=== PATIENT | male | born 1960 | race African-American/Black ===

== ENCOUNTER 2018-01-05 12:50 | Observation (INO) | payer OTHER ==
[~2018-01-05] VITALS: Ht 180.3 cm; Wt 83.0 kg
[~2018-01-05 12:50] MED LIST: CASO50TA2 PO; OXYC1TAB36 PO
[2018-01-05 13:09] VITALS: BP 138/75; TEMP 97; O2SAT 100
[2018-01-05] MEDS ORDERED: SODIUM CHLOR 0.9% 1000 ML INJ 1,000 ML IV SCH (13:27)
[2018-01-05] MEDS ORDERED: MORPHINE SULFATE 4 MG/ML INJ IV PUSH ONE ×2 (13:30→13:45)
[2018-01-05] MEDS ORDERED: ONDANSETRON HCL 4 MG/2 ML VIAL IVP ONE (13:30)
--- NOTE | 2018-01-05 13:37 | PD ---
HPI Chief Complaint: General Weakness Time Seen by Provider: 13:23 Travel History International Travel<30 days: No Contact w/Intl Traveler<30days: No History of Present Illness HPI 57yo M with PMH of stage IV prostate adenocarcinoma s/p prostatectomy 2014 with bony mets presents to the ED with c/o nausea and vomiting today. Also with lower abdominal pain since yesterday. Denies any fever, chest pain, sob, focal weakness or numbness. +Generalized weakness. Pt has been noncompliant with his treatment and follow up because he said he cant afford it. Last oncology note was from 03/[address] Chu. He said he has not gone back in 4 months. +Dysuria. PFSH Past Medical History Cancer: No Cardiovascular Problems: No Diabetes: No Diminished Hearing: No Endocrine: No Genitourinary: Yes (BPH) Hepatitis: No Hiatal Hernia: No Immune Disorder: No Musculoskeletal: No Neurologic: No Psychiatric: No Reproductive: No Respiratory: No Immunizations Current: Yes Thyroid Disease: No Past Surgical History Joint Replacement: No Pacemaker: No Other Surgery: Yes (LEFT WRIST GANGLION REMOVAL) Social History Alcohol Use: No Tobacco Use: Yes (ppd) Substance Use: No Allergies-Medications (Allergen,Severity, Reaction): Coded Allergies: No Known Allergies (Unverified Allergy, Unknown, 01/05/18) Reported Meds & Prescriptions Reported Meds & Active Scripts Active Oxycodone-Acetaminophen 10-325 mg Tab 1 Tab PO Q6H PRN Reported Casodex (Bicalutamide) 50 Mg Tab 50 Mg PO DAILY Hazardous agent; use appropriate precautions for handling & disposal. Review of Systems Except as stated in HPI: all other systems reviewed are Neg Physical Exam Narrative GENERAL: 57yo M in moderate distress. SKIN: Focused skin assessment warm/dry. HEAD: Atraumatic. Normocephalic. EYES: Pupils equal and round. No scleral icterus. No injection or drainage. ENT: No nasal bleeding or discharge. Mucous membranes dry. NECK: Trachea midline. No JVD. CARDIOVASCULAR: Regular rate and rhythm. No murmur appreciated. RESPIRATORY: No accessory muscle use. Clear to auscultation. Breath sounds equal bilaterally. GASTROINTESTINAL: Abdomen soft, Suprapubic ttp. MUSCULOSKELETAL: No obvious deformities. No clubbing. No cyanosis. No edema. NEUROLOGICAL: Awake and alert. No obvious cranial nerve deficits. Motor grossly within normal limits. Normal speech. PSYCHIATRIC: Appropriate mood and affect; insight and judgment normal. Data Data Last Documented VS Vital Signs Date Time Temp Pulse Resp B/P (MAP) Pulse Ox O2 Delivery O2 Flow Rate FiO2 01/05/18 14:13 97.6 01/05/18 13:09 50 20 138/75 (96) 100 Orders Orders Complete Blood Count With Diff (01/05/18 13:27) Comprehensive Metabolic Panel (01/05/18 13:27) Lipase (01/05/18 13:27) Prothrombin Time / Inr (Pt) (01/05/18 13:27) Act Partial Throm Time (Ptt) (01/05/18 13:27) Urinalysis - C+S If Indicated (01/05/18 13:27) Ct Abd/Pel W Iv Contrast(Rout) (01/05/18 13:27) Morphine Inj (Morphine Inj) (01/05/18 13:30) Ondansetron Inj (Zofran Inj) (01/05/18 13:30) Sodium Chlor 0.9% 1000 Ml Inj (Ns 1000 M (01/05/18 13:27) Electrocardiogram (01/05/18 12:57) Morphine Inj (Morphine Inj) (01/05/18 13:45) Iohexol 350 Inj (Omnipaque 350 Inj) (01/05/18 15:31) Metoclopramide Inj (Reglan Inj) (01/05/18 15:45) Ondansetron Inj (Zofran Inj) (01/05/18 17:00) Admit Order (Ed Use Only) (01/05/18 17:04) Labs Laboratory Tests Test 01/05/18 13:38 01/05/18 16:30 White Blood Count 5.7 TH/MM3 Red Blood Count 4.92 MIL/MM3 Hemoglobin 13.4 GM/DL Hematocrit 39.7 % Mean Corpuscular Volume 80.8 FL Mean Corpuscular Hemoglobin 27.2 PG Mean Corpuscular Hemoglobin Concent 33.7 % Red Cell Distribution Width 15.0 % Platelet Count 270 TH/MM3 Mean Platelet Volume 8.4 FL Neutrophils (%) (Auto) 73.8 % Lymphocytes (%) (Auto) 20.1 % Monocytes (%) (Auto) 4.9 % Eosinophils (%) (Auto) 0.6 % Basophils (%) (Auto) 0.6 % Neutrophils # (Auto) 4.2 TH/MM3 Lymphocytes # (Auto) 1.1 TH/MM3 Monocytes # (Auto) 0.3 TH/MM3 Eosinophils # (Auto) 0.0 TH/MM3 Basophils # (Auto) 0.0 TH/MM3 CBC Comment DIFF FINAL Differential Comment Blood Urea Nitrogen 19 MG/DL Creatinine 0.99 MG/DL Random Glucose 168 MG/DL Total Protein 6.7 GM/DL Albumin 3.8 GM/DL Calcium Level 8.7 MG/DL Alkaline Phosphatase 41 U/L Aspartate Amino Transf (AST/SGOT) 16 U/L Alanine Aminotransferase (ALT/SGPT) 20 U/L Total Bilirubin 0.5 MG/DL Sodium Level 140 MEQ/L Potassium Level 3.8 MEQ/L Chloride Level 108 MEQ/L Carbon Dioxide Level 23.4 MEQ/L Anion Gap 9 MEQ/L Estimat Glomerular Filtration Rate 95 ML/MIN Lipase 379 U/L Urine Color YELLOW Urine Turbidity CLEAR Urine pH 5.5 Urine Specific [place] 1.026 Urine Protein TRACE mg/dL Urine Glucose (UA) NEG mg/dL Urine Ketones 10 mg/dL Urine Occult Blood NEG Urine Nitrite NEG Urine Bilirubin NEG Urine Urobilinogen LESS THAN 2.0 MG/DL Urine Leukocyte Esterase NEG Urine RBC 2 /hpf Urine WBC 1 /hpf Urine Squamous Epithelial Cells <1 /hpf Urine Mucus FEW /lpf Urine Sperm FEW Microscopic Urinalysis Comment CULT NOT INDICATED MDM Medical Decision Making Medical Screen Exam Complete: Yes Emergency Medical Condition: Yes Interpretation(s) EKG: Sinus bradycardia at 48bpm. Normal axis. Biphasic T waves V4-V6. Differential Diagnosis Malignancy vs. electrolyte abnormality vs. dehydration Narrative Course 57yo M with stage IV prostate adenocarcinoma presents to the ED with nausea, vomiting and abdominal pain. Pt has been noncompliant with following up with oncologist Dr. Chu because he said he cant afford the treatment. Labs reviewed , no leukocytosis. H/H normal. CMP unremarkable. Lipase normal. UA showed WBC 1. Culture not indicated. CT a/p showed left inguinal and retroperitoneal node. Also bony sclerosis involving pelvis and lower thoracic spine. These findings are new compare to 01/2015. No acute intra-abdominal abnormality. Pt was given zofran and then reglan and then zofran again and is still nauseous. Pt appears dehydrated and given NS IVF. Discussed with Dr. Chu who has not seen him in almost a year and said he agrees with supportive care and then he can follow up with him in the clinic. Pt agrees to that plan. Said he will be compliant now. Diagnosis Primary Impression: Intractable nausea and vomiting Qualified Codes: R11.2 - Nausea with vomiting, unspecified Admitting Information Admitting Physician Requests: Observation Scripts Walker with Front Wheels (Walker with Front Wheels) 1 Mis Mis EA .XX DIRECTED, #1 0 Refills Prov: Tom Mandel 01/06/18 Greer Calix DO Jan 05, 2018 13:37
[2018-01-05 13:56] LABS: AUTOMATED NEUTROPHIL # 4.2 TH/MM3 (1.8-7.7); BASOPHIL % 0.6 % (0.0-2.0); EOSINOPHIL % 0.6 % (0.0-4.0); HEMATOCRIT 39.7 % (39.0-51.0); HEMOGLOBIN 13.4 GM/DL (13.0-17.0); LYMPH % 20.1 % (9.0-44.0); LYMPHOCYTE # 1.1 TH/MM3 (1.0-4.8); MEAN CELL VOLUME 80.8 FL (80.0-100.0); MEAN CORPUSCULAR HEMOGLOBIN 27.2 PG (27.0-34.0); MEAN CORPUSCULAR HGB CONC 33.7 % (32.0-36.0); MEAN PLATELET VOLUME 8.4 FL (7.0-11.0); MONO % 4.9 % (0.0-8.0); MONOCYTE # 0.3 TH/MM3 (0-0.9); NEUT % 73.8 % (16.0-70.0); PLATELET COUNT 270 TH/MM3 (150-450); RED BLOOD COUNT 4.92 MIL/MM3 (4.50-5.90); WHITE BLOOD COUNT 5.7 TH/MM3 (4.0-11.0)
[2018-01-05 14:13] VITALS: TEMP 97.6
[2018-01-05 14:13] LABS: ALBUMIN 3.8 GM/DL (3.4-5.0); AST (GOT) 16 U/L (15-37); BICARBONATE 23.4 MEQ/L (21.0-32.0); BLOOD UREA NITROGEN 19 MG/DL (7-18); CALCIUM 8.7 MG/DL (8.5-10.1); CHLORIDE 108 MEQ/L (98-107); CREATININE 0.99 MG/DL (0.60-1.30); GLOMERULAR FILTRATION RATE 95 ML/MIN (>89); GLUCOSE,RANDOM 168 MG/DL (74-106); SODIUM (NA) 140 MEQ/L (136-145)
[2018-01-05 14:15] LABS: ALT (GPT) 20 U/L (12-78)
[2018-01-05 14:18] LABS: ALKALINE PHOSPHATASE 41 U/L (45-117); TOTAL BILIRUBIN ADULT 0.5 MG/DL (0.2-1.0); TOTAL PROTEIN 6.7 GM/DL (6.4-8.2)
[2018-01-05] MEDS ORDERED: IOHEXOL 350 MG/ML 10 ML VIAL (for RAD DIAG) IVCONTRAST ONE (15:31)
[2018-01-05] MEDS ORDERED: METOCLOPRAMIDE INJ 10 MG in SODIUM CHLORIDE 0.9% INJ 50 ML IV ONE (15:45)
--- NOTE | 2018-01-05 15:53 | RADRPT ---
EXAM DATE/TIME: 01/05/2018 15:20 [facility] COMPARISON: CT ABDOMEN & PELVIS W CONTRAST, January 23, 2015, 19:46. INDICATIONS : Abdominal pain, weakness over last 24 hours. IV CONTRAST: 93 cc Omnipaque 350 (iohexol) IV ORAL CONTRAST: No oral contrast ingested. RADIATION DOSE: 6.88 CTDIvol (mGy) MEDICAL HISTORY : Carcinoma, prostate. Benign prostatic hyperplasia (BPH). Ganglion cyst SURGICAL HISTORY : None. ENCOUNTER: Initial ACUITY: 1 day PAIN SCALE: 6/10 LOCATION: Bilateral Abdomen TECHNIQUE: Volumetric scanning of the abdomen and pelvis was performed. Using automated exposure control and ad justment of the mA and/or kV according to patient size, radiation dose was kept as low as reasonably achievable to obtain optimal diagnostic quality images. DICOM format image data is available electro nically for review and comparison. FINDINGS: The limited portion of the lung base visualized is clear. The appearance of the liver, spleen, pancreas, adrenal glands and kidneys is within normal limits. The abdominal aorta is normal in caliber. There is a 1.6 x 1.2 cm para-aortic node in the retroperito neum. This is new compared to the previous dated 01/23/15. This is nonspecific by CT imaging. There is no free peritoneal air. No free intraperitoneal fluid is seen. The anterior abdominal wall i s intact. There is no free fluid within the pelvis. The prostate appears mildly enlarged and irregular in shape . The examination demonstrates a 3.8 x 1.9 cm enhancing node in the left inguinal canal. The visualized bony structures demonstrate an area of bony sclerosis in the T12 vertebral body, the p osterior iliac wing on the right, the ilium on the left and the acetabular roof on the left. These ar eas are new when compared to previous examination. CONCLUSION: 1. The prostate is enlarged. There is a 3.8 x 1.9 cm left inguinal lobe and a 1.6 x 1.2 cm retroperit tao node. In addition, the exam demonstrates scattered areas of bony sclerosis involving the pelvis and lower thoracic spine. These findings are new compared to previous dated 01/23/15 and would be con cerning for prostate cancer. 2. No acute intra-abdominal abnormality is seen. Carlos Stone MD on January 05, 2018 at 15:35 Board Certified Radiologist. This report was verified electronically.
[2018-01-05] MEDS ORDERED: ONDANSETRON HCL 4 MG/2 ML VIAL IV PUSH ONE (17:00)
[2018-01-05 17:18] LABS: BILIRUBIN, URINE NEG (NEG); BLOOD, URINE NEG (NEG); GLUCOSE,URINE NEG (NEG); KETONE, URINE 10 mg/dL (NEG); MUCUS URINE FEW /lpf (OCC); NITRITE,URINE NEG (NEG); PH, URINE 5.5 (5.0-8.5); SPERM, URINE FEW; SQUAMOUS EPITHELIAL CELL URINE <1 /hpf (0-5); URINE COLOR YELLOW (YELLW/STRAW); URINE LEUKOCYTE ESTERASE NEG (NEG)
[2018-01-05 17:30] VITALS: BP 141/91; PULSE 48; RESP 17; O2SAT 98
[2018-01-05] MEDS ORDERED: METOCLOPRAMIDE HCL 10 MG/2 ML VIAL IV PUSH PRN (17:45)
[2018-01-05] MEDS ORDERED: SODIUM CHLORIDE 0.9% FLUSH 10 ML FLUSH IV FLUSH PRN (17:45)
[2018-01-05] MEDS ORDERED: NALOXONE HCL 0.4 MG/ML AMP IV PUSH PRN (17:45)
[2018-01-05] MEDS ORDERED: TEMAZEPAM 15 MG CAP PO PRN (17:45)
--- NOTE | 2018-01-05 17:47 | HHI.HP ---
[facility] [place] Physician Iain De La Garza M.D. Admission Diagnosis Intractable nausea, dehydration Diagnoses: (1) Intractable nausea and vomiting (2) Cancer of prostate Chief Complaint: nausea and vomiting Travel History International Travel<30 Days: No Contact w/Intl Traveler <30 Da: No History of Present Illness 57 yrs old man with a PMHx of Stage IV Prostate cancer presents to the ED for evaluation of acute onset of intractable nausea and vomiting associated with abdominal cramps and pain. He denies any sick contact and does not think he has eaten any meal which could have caused this. Patient has a history of Prostate Cancer stage IV, however states over the past 4 months he has not had any treatment due to the cost. He denies any chest pain or GI bleed Review of Systems Except as stated in HPI: all other systems reviewed are Neg Past Family Social History Past Medical History Prostate cancer stage IV Past Surgical History LEFT WRIST GANGLION REMOVAL Reported Medications Oxycodone-Acetaminophen 10-325 mg Tab 1 Tab PO Q6H PRN Reported Casodex (Bicalutamide) 50 Mg Tab 50 Mg PO DAILY Hazardous agent; use appropriate precautions for handling & disposal. Allergies: Coded Allergies: No Known Allergies (Unverified Allergy, Unknown, 01/05/18) Family History Prostate cancer Breast cancer Social History Alcohol Use: No Tobacco Use: Yes (ppd) Substance Use: No Physical Exam Vital Signs Vital Signs Date Time Temp Pulse Resp B/P (MAP) Pulse Ox O2 Delivery O2 Flow Rate FiO2 01/05/18 17:30 48 17 141/91 (108) 98 Room Air 01/05/18 14:13 97.6 01/05/18 13:09 97.0 50 20 138/75 (96) 100 Physical Exam GENERAL: This is a well-nourished, well-developed patient, in mild distress. SKIN: No rashes, ecchymoses or lesions. Cool and dry. HEAD: Atraumatic. Normocephalic. No temporal or scalp tenderness. EYES: Pupils equal round and reactive. Extraocular motions intact. No scleral icterus. No injection or drainage. ENT: Nose without bleeding, purulent drainage or septal hematoma. Throat without erythema, tonsillar hypertrophy or exudate. Uvula midline. Airway patent. NECK: Trachea midline. No JVD or lymphadenopathy. Supple, nontender, no meningeal signs. CARDIOVASCULAR: Regular rate and rhythm without murmurs, gallops, or rubs. RESPIRATORY: Clear to auscultation. Breath sounds equal bilaterally. No wheezes , rales, or rhonchi. GASTROINTESTINAL: Abdomen soft, TTP, nondistended. No hepato-splenomegaly, or palpable masses. No guarding. MUSCULOSKELETAL: Extremities without clubbing, cyanosis, or edema. No joint tenderness, effusion, or edema noted. No calf tenderness. Negative Homans sign bilaterally. NEUROLOGICAL: Awake and alert. Cranial nerves II through XII intact. Motor and sensory grossly within normal limits. Five out of 5 muscle strength in all muscle groups. Normal speech. Laboratory Laboratory Tests Test 01/05/18 13:38 01/05/18 14:00 01/05/18 16:30 White Blood Count 5.7 Red Blood Count 4.92 Hemoglobin 13.4 Hematocrit 39.7 Mean Corpuscular Volume 80.8 Mean Corpuscular Hemoglobin 27.2 Mean Corpuscular Hemoglobin Concent 33.7 Red Cell Distribution Width 15.0 Platelet Count 270 Mean Platelet Volume 8.4 Neutrophils (%) (Auto) 73.8 Lymphocytes (%) (Auto) 20.1 Monocytes (%) (Auto) 4.9 Eosinophils (%) (Auto) 0.6 Basophils (%) (Auto) 0.6 Neutrophils # (Auto) 4.2 Lymphocytes # (Auto) 1.1 Monocytes # (Auto) 0.3 Eosinophils # (Auto) 0.0 Basophils # (Auto) 0.0 CBC Comment DIFF FINAL Differential Comment Blood Urea Nitrogen 19 Creatinine 0.99 Random Glucose 168 Total Protein 6.7 Albumin 3.8 Calcium Level 8.7 Alkaline Phosphatase 41 Aspartate Amino Transf (AST/SGOT) 16 Alanine Aminotransferase (ALT/SGPT) 20 Total Bilirubin 0.5 Sodium Level 140 Potassium Level 3.8 Chloride Level 108 Carbon Dioxide Level 23.4 Anion Gap 9 Estimat Glomerular Filtration Rate 95 Lipase 379 Urine Color YELLOW Urine Turbidity CLEAR Urine pH 5.5 Urine Specific [place] 1.026 Urine Protein TRACE Urine Glucose (UA) NEG Urine Ketones 10 Urine Occult Blood NEG Urine Nitrite NEG Urine Bilirubin NEG Urine Urobilinogen LESS THAN 2.0 Urine Leukocyte Esterase NEG Urine RBC 2 Urine WBC 1 Urine Squamous Epithelial Cells <1 Urine Mucus FEW Urine Sperm FEW Microscopic Urinalysis Comment CULT NOT INDICATED Result Diagram: 01/05/18 1338 01/05/18 1338 Imaging Last Impressions Abdomen/Pelvis CT 01/05/18 1327 Signed Impressions: Service Date/Time: December 15:20 - CONCLUSION: 1. The prostate is enlarged. There is a 3.8 x 1.9 cm left inguinal lobe and a 1.6 x 1.2 cm retroperitoneal node. In addition, the exam demonstrates scattered areas of bony sclerosis involving the pelvis and lower thoracic spine. These findings are new compared to previous dated 01/23/15 and would be concerning for prostate cancer. 2. No acute intra-abdominal abnormality is seen. Carlos Stone MD Septic Shock Reassessment Septic shock perfusion: reassessment completed Caprini VTE Risk Assessment Caprini VTE Risk Assessment: No/Low Risk (score <= 1) Caprini Risk Assessment Model Point Value = 1 Point Value = 2 Point Value = 3 Point Value = 5 Age 41-60 Minor surgery BMI > 25 kg/m2 Swollen legs Varicose veins or History of unexplained or recurrent spontaneous Oral contraceptives or hormone replacement Sepsis (< 1 month) Serious lung disease, including pneumonia (< 1 month) Abnormal pulmonary function Acute myocardial infarction Congestive heart failure (< 1 month) History of inflammatory bowel disease Medical patient at bed rest Age 61-74 Arthroscopic surgery Major open surgery (> 45 min) Laparoscopic surgery (> 45 min) Malignancy Confined to bed (> 72 hours) Immobilizing plaster cast Central venous access Age >= 75 History of VTE Family history of VTE Factor V Leiden Prothrombin [id number] Lupus anticoagulant Anticardiolipin antibodies Elevated serum homocysteine Heparin-induced thrombocytopenia Other congenital or acquired thrombophilia Stroke (< 1 month) Elective arthroplasty Hip, pelvis, or leg fracture Acute spinal cord injury (< 1 month) Prophylaxis Regimen Total Risk Factor Score Risk Level Prophylaxis Regimen 0-1 Low Early ambulation 2 Moderate Order ONE of the following: *Sequential Compression Device (SCD) *Heparin 5000 units SQ BID 3-4 Higher Order ONE of the following medications: *Heparin 5000 units SQ TID *Enoxaparin/Lovenox 40 mg SQ daily (WT < 150 kg, CrCl > 30 mL/min) *Enoxaparin/Lovenox 30 mg SQ daily (WT < 150 kg, CrCl > 10-29 mL/min) *Enoxaparin/Lovenox 30 mg SQ BID (WT < 150 kg, CrCl > 30 mL/min) AND/OR *Sequential Compression Device (SCD) 5 or more Highest Order ONE of the following medications: *Heparin 5000 units SQ TID (Preferred with Epidurals) *Enoxaparin/Lovenox 40 mg SQ daily (WT < 150 kg, CrCl > 30 mL/min) *Enoxaparin/Lovenox 30 mg SQ daily (WT < 150 kg, CrCl > 10-29 mL/min) *Enoxaparin/Lovenox 30 mg SQ BID (WT < 150 kg, CrCl > 30 mL/min) AND *Sequential Compression Device (SCD) Assessment and Plan Problem List: (1) Intractable nausea and vomiting ICD Code: R11.2 - Nausea with vomiting, unspecified (2) Cancer of prostate ICD Code: C61 - Malignant neoplasm of prostate Status: Acute Assessment and Plan 57 years old man with Intractable nausea and vomiting Conservative management with IVF hydration, antiemetic Start Clear liquid diet and ADAT Hyperglycemia Check HgA1C and treat accordingly History of prostate cancer CT abdomen/pelvis noted and review by me with finding of mets disease Patient is aware that he needs to follow outpatient with Dr Chu, Medical Oncology for treatment Tobacco abuse Tobacco cessation counselling provided Start Nicotine patch DVT prophylaxis: B-SCDs Code Status Full code Discussed Condition With patient, ED physician Avery Bang MD Jan 05, 2018 17:47
[2018-01-05] MEDS: NICOTINE 21 MG/24 HR PATCH T-DERMAL SCH (18:00)
[2018-01-05] MEDS: ONDANSETRON HCL 4 MG/2 ML VIAL IVP PRN (19:50)
[2018-01-05] MEDS: SODIUM CHLOR 0.9% 1000 ML INJ 1,000 ML IV SCH (19:50)
[2018-01-05] MEDS: SODIUM CHLORIDE 0.9% FLUSH 10 ML FLUSH IV FLUSH SCH (19:50)
[2018-01-05 20:03] VITALS: BP 103/50; PULSE 58; RESP 18; TEMP 98.7; O2SAT 97
[2018-01-06 00:23] LABS: INTERNATIONAL NORMALIZED RATIO 1.1 RATIO; PROTHROMBIN TIME - PATIENT 10.7 SEC (9.8-11.6)
[2018-01-06 02:34] VITALS: BP 110/59; PULSE 58; RESP 16; TEMP 98; O2SAT 96
[2018-01-06 07:39] LABS: AUTOMATED NEUTROPHIL # 6.1 TH/MM3 (1.8-7.7); BASOPHIL % 0.2 % (0.0-2.0); EOSINOPHIL % 0.1 % (0.0-4.0); HEMATOCRIT 36.8 % (39.0-51.0); HEMOGLOBIN 12.3 GM/DL (13.0-17.0); LYMPH % 18.3 % (9.0-44.0); LYMPHOCYTE # 1.5 TH/MM3 (1.0-4.8); MEAN CELL VOLUME 80.3 FL (80.0-100.0); MEAN CORPUSCULAR HEMOGLOBIN 26.8 PG (27.0-34.0); MEAN CORPUSCULAR HGB CONC 33.3 % (32.0-36.0); MEAN PLATELET VOLUME 7.9 FL (7.0-11.0); MONO % 7.8 % (0.0-8.0); MONOCYTE # 0.6 TH/MM3 (0-0.9); NEUT % 73.6 % (16.0-70.0); PLATELET COUNT 243 TH/MM3 (150-450); RED BLOOD COUNT 4.58 MIL/MM3 (4.50-5.90); RED CELL DISTRIBUTION WIDTH 14.4 % (11.6-17.2); WHITE BLOOD COUNT 8.3 TH/MM3 (4.0-11.0)
[2018-01-06 07:44] VITALS: BP 123/68; PULSE 58; RESP 18; TEMP 98.6; O2SAT 100
[2018-01-06] MEDS: SODIUM CHLOR 0.9% 1000 ML INJ 1,000 ML IV SCH ×3 (07:46→23:38)
[2018-01-06] MEDS: ONDANSETRON HCL 4 MG/2 ML VIAL IVP PRN (07:46)
[2018-01-06 08:08] LABS: ALBUMIN 3.2 GM/DL (3.4-5.0); ALT (GPT) 16 U/L (12-78); AST (GOT) 10 U/L (15-37); BICARBONATE 26.8 MEQ/L (21.0-32.0); BLOOD UREA NITROGEN 19 MG/DL (7-18); CHLORIDE 110 MEQ/L (98-107); CREATININE 0.98 MG/DL (0.60-1.30); GLOMERULAR FILTRATION RATE 96 ML/MIN (>89); GLUCOSE,RANDOM 87 MG/DL (74-106); SODIUM (NA) 145 MEQ/L (136-145)
[2018-01-06 08:10] LABS: ALKALINE PHOSPHATASE 36 U/L (45-117); TOTAL BILIRUBIN ADULT 0.5 MG/DL (0.2-1.0); TOTAL PROTEIN 6.1 GM/DL (6.4-8.2)
[2018-01-06] MEDS: REMOVE OLD PATCH T-DERMAL SCH (09:00)
[2018-01-06] MEDS: NICOTINE 21 MG/24 HR PATCH T-DERMAL SCH (09:00)
[2018-01-06] MEDS: SODIUM CHLORIDE 0.9% FLUSH 10 ML FLUSH IV FLUSH SCH ×2 (09:00→21:00)
--- NOTE | 2018-01-06 11:23 | EKG ---
Date Performed: 01/05/2018 Time Performed: 12:57:33 PTAGE: 57 years EKG: SINUS BRADYCARDIA BORDERLINE ECG PREVIOUS TRACING : 02/27/2015 06.55 Since the previous tracing, no significant change noted DOCTOR: Moncho Jaimes Interpretating Date/Time 01/06/2018 11:22:08
[2018-01-06 12:15] VITALS: BP 102/56; PULSE 63; RESP 18; TEMP 97.6; O2SAT 99
[2018-01-06] MEDS ORDERED: POTASSIUM CHLORIDE 10 MEQ CONTROLLED RELEASE TAB PO ONE (12:30)
--- NOTE | 2018-01-06 13:17 | HHI.PR ---
Subjective Remarks Patient is in bed family at bedside. Says he wants to eat regular food is not nauseated and no more vomiting. No fever chills no abdominal pain. No problems with urination. Had a bowel movement 2 days ago. Objective Vitals Vital Signs Date Time Temp Pulse Resp B/P (MAP) Pulse Ox O2 Delivery O2 Flow Rate FiO2 01/06/18 12:15 97.6 63 18 102/56 (71) 99 01/06/18 07:44 98.6 58 18 123/68 (86) 100 01/06/18 02:34 98.0 58 16 110/59 (76) 96 01/05/18 20:03 98.7 58 18 103/50 (67) 97 01/05/18 19:14 01/05/18 17:30 48 17 141/91 (108) 98 Room Air 01/05/18 14:13 97.6 I/O 01/05/18 01/05/18 01/05/18 01/06/18 01/06/18 01/06/18 07:00 15:00 23:00 07:00 15:00 23:00 Output Total 100 ml 500 ml Balance -100 ml -500 ml Output Urine Total 100 ml 500 ml # Voids 1 Result Diagram: 01/06/18 0710 01/06/18 0710 Imaging Last Impressions Abdomen/Pelvis CT 01/05/18 1327 Signed Impressions: Service Date/Time: December 15:20 - CONCLUSION: 1. The prostate is enlarged. There is a 3.8 x 1.9 cm left inguinal lobe and a 1.6 x 1.2 cm retroperitoneal node. In addition, the exam demonstrates scattered areas of bony sclerosis involving the pelvis and lower thoracic spine. These findings are new compared to previous dated 01/23/15 and would be concerning for prostate cancer. 2. No acute intra-abdominal abnormality is seen. Carlos Stone MD Objective Remarks GENERAL: This is a well-nourished, well-developed patient, in mild distress. SKIN: No rashes, ecchymoses or lesions. Cool and dry. HEAD: Atraumatic. Normocephalic. No temporal or scalp tenderness. EYES: Pupils equal round and reactive. Extraocular motions intact. No scleral icterus. No injection or drainage. ENT: Nose without bleeding, purulent drainage or septal hematoma. Throat without erythema, tonsillar hypertrophy or exudate. Uvula midline. Airway patent. NECK: Trachea midline. No JVD or lymphadenopathy. Supple, nontender, no meningeal signs. CARDIOVASCULAR: Regular rate and rhythm without murmurs, gallops, or rubs. RESPIRATORY: Clear to auscultation. Breath sounds equal bilaterally. No wheezes , rales, or rhonchi. GASTROINTESTINAL: Abdomen soft, TTP, nondistended. No hepato-splenomegaly, or palpable masses. No guarding. MUSCULOSKELETAL: Extremities without clubbing, cyanosis, or edema. No joint tenderness, effusion, or edema noted. No calf tenderness. Negative Homans sign bilaterally. NEUROLOGICAL: Awake and alert. Cranial nerves II through XII intact. Motor and sensory grossly within normal limits. Five out of 5 muscle strength in all muscle groups. Normal speech. Laboratory Laboratory Tests Test 01/05/18 13:38 01/05/18 14:00 01/05/18 16:30 White Blood Count 5.7 Red Blood Count 4.92 Hemoglobin 13.4 Hematocrit 39.7 Mean Corpuscular Volume 80.8 Mean Corpuscular Hemoglobin 27.2 Mean Corpuscular Hemoglobin Concent 33.7 Red Cell Distribution Width 15.0 Platelet Count 270 Mean Platelet Volume 8.4 Neutrophils (%) (Auto) 73.8 Lymphocytes (%) (Auto) 20.1 Monocytes (%) (Auto) 4.9 Eosinophils (%) (Auto) 0.6 Basophils (%) (Auto) 0.6 Neutrophils # (Auto) 4.2 Lymphocytes # (Auto) 1.1 Monocytes # (Auto) 0.3 Eosinophils # (Auto) 0.0 Basophils # (Auto) 0.0 CBC Comment DIFF FINAL Differential Comment Blood Urea Nitrogen 19 Creatinine 0.99 Random Glucose 168 Total Protein 6.7 Albumin 3.8 Calcium Level 8.7 Alkaline Phosphatase 41 Aspartate Amino Transf (AST/SGOT) 16 Alanine Aminotransferase (ALT/SGPT) 20 Total Bilirubin 0.5 Sodium Level 140 Potassium Level 3.8 Chloride Level 108 Carbon Dioxide Level 23.4 Anion Gap 9 Estimat Glomerular Filtration Rate 95 Lipase 379 Urine Color YELLOW Urine Turbidity CLEAR Urine pH 5.5 Urine Specific [place] 1.026 Urine Protein TRACE Urine Glucose (UA) NEG Urine Ketones 10 Urine Occult Blood NEG Urine Nitrite NEG Urine Bilirubin NEG Urine Urobilinogen LESS THAN 2.0 Urine Leukocyte Esterase NEG Urine RBC 2 Urine WBC 1 Urine Squamous Epithelial Cells <1 Urine Mucus FEW Urine Sperm FEW Microscopic Urinalysis Comment CULT NOT INDICATED Result Diagram: 01/05/18 1338 01/05/18 1338 Imaging Last Impressions Abdomen/Pelvis CT 01/05/18 1327 Signed Impressions: Service Date/Time: December 15:20 - CONCLUSION: 1. The prostate is enlarged. There is a 3.8 x 1.9 cm left inguinal lobe and a 1.6 x 1.2 cm retroperitoneal node. In addition, the exam demonstrates scattered areas of bony sclerosis involving the pelvis and lower thoracic spine. These findings are new compared to previous dated 01/23/15 and would be concerning for prostate cancer. 2. No acute intra-abdominal abnormality is seen. Carlos Stone MD Septic Shock Reassessment Septic Shock Reassessment Septic shock perfusion: reassessment completed Caprini VTE Risk Assessment Caprini VTE Risk Assessment Caprini VTE Risk Assessment: No/Low Risk (score <= 1) Caprini Risk Assessment Model Point Value = 1 Point Value = 2 Point Value = 3 Point Value = 5 Age 41-60 Minor surgery BMI > 25 kg/m2 Swollen legs Varicose veins or History of unexplained or recurrent spontaneous Oral contraceptives or hormone replacement Sepsis (< 1 month) Serious lung disease, including pneumonia (< 1 month) Abnormal pulmonary function Acute myocardial infarction Congestive heart failure (< 1 month) History of inflammatory bowel disease Medical patient at bed rest Age 61-74 Arthroscopic surgery Major open surgery (> 45 min) Laparoscopic surgery (> 45 min) Malignancy Confined to bed (> 72 hours) Immobilizing plaster cast Central venous access Age >= 75 History of VTE Family history of VTE Factor V Leiden Prothrombin [id number] Lupus anticoagulant Anticardiolipin antibodies Elevated serum homocysteine Heparin-induced thrombocytopenia Other congenital or acquired thrombophilia Stroke (< 1 month) Elective arthroplasty Hip, pelvis, or leg fracture Acute spinal cord injury (< 1 month) Prophylaxis Regimen Total Risk Factor Score Risk Level Prophylaxis Regimen 0-1 Low Early ambulation 2 Moderate Order ONE of the following: *Sequential Compression Device (SCD) *Heparin 5000 units SQ BID 3-4 Higher Order ONE of the following medications: *Heparin 5000 units SQ TID *Enoxaparin/Lovenox 40 mg SQ daily (WT < 150 kg, CrCl > 30 mL/min) *Enoxaparin/Lovenox 30 mg SQ daily (WT < 150 kg, CrCl > 10-29 mL/min) *Enoxaparin/Lovenox 30 mg SQ BID (WT < 150 kg, CrCl > 30 mL/min) AND/OR *Sequential Compression Device (SCD) 5 or more Highest Order ONE of the following medications: *Heparin 5000 units SQ TID (Preferred with Epidurals) *Enoxaparin/Lovenox 40 mg SQ daily (WT < 150 kg, CrCl > 30 mL/min) *Enoxaparin/Lovenox 30 mg SQ daily (WT < 150 kg, CrCl > 10-29 mL/min) *Enoxaparin/Lovenox 30 mg SQ BID (WT < 150 kg, CrCl > 30 mL/min) AND *Sequential Compression Device (SCD) Assessment and Plan Assessment and Plan Problem List: (1) Intractable nausea and vomiting ICD Code: R11.2 - Nausea with vomiting, unspecified (2) Cancer of prostate ICD Code: C61 - Malignant neoplasm of prostate Status: Acute Assessment and Plan 57 years old man with Intractable nausea and vomiting. Resolving. Conservative management with IVF hydration, antiemetic Feeling better, advance diet to regular diet. Hyperglycemia Check HgA1C and treat accordingly History of prostate cancer CT abdomen/pelvis noted and review by me with finding of mets disease Patient is aware that he needs to follow outpatient with Dr Chu, Medical Oncology for treatment Tobacco abuse Tobacco cessation counselling provided Start Nicotine patch DVT prophylaxis: B-SCDs Code Status Full code Discussed Condition With patient, nurse, family at bedside A/P Problem List: (1) Intractable nausea and vomiting ICD Code: R11.2 - Nausea with vomiting, unspecified (2) Cancer of prostate ICD Code: C61 - Malignant neoplasm of prostate Status: Acute Problem Qualifiers (1) Intractable nausea and vomiting: Qualified Codes: R11.2 - Nausea with vomiting, unspecified Quynh Ceedno MD Jan 06, 2018 13:17
[2018-01-06] MEDS ORDERED: WALKER WHEELS/F1 MIS (13:19)
--- NOTE | 2018-01-06 13:22 | HHI.DCPOC ---
Discharge Care Plan Diagnosis: (1) Cancer of prostate (2) Intractable nausea and vomiting (3) Elevated PSA Your Health Problems Are: Difficulty with ADL Weight Loss Goals to Promote Your Health * To prevent worsening of your condition and complications * To maintain your health at the optimal level Directions to Meet Your Goals Take your medications as prescribed Follow your dietary instruction Follow activity as directed Keep your appointments as scheduled Take your immunizations and boosters as scheduled If your symptoms worsen call your PCP, if no PCP go to Urgent Care Center or Emergency Room Smoking is Dangerous to Your Health. Avoid second hand smoke Call the 24-hour hour crisis hotline for domestic abuse at Tom Mandel Jan 06, 2018 13:22
--- NOTE | 2018-01-06 13:24 | HHI.DS ---
Discharge Summary Admission Date Jan 05, 2018 at 17:06 Discharge Date: Jan 06, 2018 Admitting Diagnosis Intractable nausea, dehydration (1) Intractable nausea and vomiting ICD Code: R11.2 - Nausea with vomiting, unspecified (2) Cancer of prostate ICD Code: C61 - Malignant neoplasm of prostate Status: Acute Procedures none Brief History - From Admission 57 yrs old man with a PMHx of Stage IV Prostate cancer presents to the ED for evaluation of acute onset of intractable nausea and vomiting associated with abdominal cramps and pain. He denies any sick contact and does not think he has eaten any meal which could have caused this. Patient has a history of Prostate Cancer stage IV, however states over the past 4 months he has not had any treatment due to the cost. He denies any chest pain or GI bleed CBC/BMP: 01/06/18 0710 01/06/18 0710 Significant Findings Laboratory Tests Test 01/05/18 13:38 01/05/18 16:30 01/05/18 23:53 01/06/18 07:10 Neutrophils (%) (Auto) 73.8 % (16.0-70.0) 73.6 % (16.0-70.0) Blood Urea Nitrogen 19 MG/DL (7-18) 19 MG/DL (7-18) Random Glucose 168 MG/DL (74-106) Alkaline Phosphatase 41 U/L (45-117) 36 U/L (45-117) Chloride Level 108 MEQ/L (98-107) 110 MEQ/L (98-107) Urine Ketones 10 mg/dL (NEG) Urine Mucus FEW /lpf (OCC) Urine Sperm FEW (NONE) Activated Partial Thromboplast Time 21.5 SEC (24.3-30.1) Hemoglobin 12.3 GM/DL (13.0-17.0) Hematocrit 36.8 % (39.0-51.0) Mean Corpuscular Hemoglobin 26.8 PG (27.0-34.0) Total Protein 6.1 GM/DL (6.4-8.2) Albumin 3.2 GM/DL (3.4-5.0) Calcium Level 8.0 MG/DL (8.5-10.1) Aspartate Amino Transf (AST/SGOT) 10 U/L (15-37) Potassium Level 3.4 MEQ/L (3.5-5.1) Imaging Last Impressions Abdomen/Pelvis CT 01/05/18 1327 Signed Impressions: Service Date/Time: December 15:20 - CONCLUSION: 1. The prostate is enlarged. There is a 3.8 x 1.9 cm left inguinal lobe and a 1.6 x 1.2 cm retroperitoneal node. In addition, the exam demonstrates scattered areas of bony sclerosis involving the pelvis and lower thoracic spine. These findings are new compared to previous dated 01/23/15 and would be concerning for prostate cancer. 2. No acute intra-abdominal abnormality is seen. Carlos Stone MD PE at Discharge GENERAL: This is a well-nourished, well-developed patient, in mild distress. SKIN: No rashes, ecchymoses or lesions. Cool and dry. HEAD: Atraumatic. Normocephalic. No temporal or scalp tenderness. EYES: Pupils equal round and reactive. Extraocular motions intact. No scleral icterus. No injection or drainage. ENT: Nose without bleeding, purulent drainage or septal hematoma. Throat without erythema, tonsillar hypertrophy or exudate. Uvula midline. Airway patent. NECK: Trachea midline. No JVD or lymphadenopathy. Supple, nontender, no meningeal signs. CARDIOVASCULAR: Regular rate and rhythm without murmurs, gallops, or rubs. RESPIRATORY: Clear to auscultation. Breath sounds equal bilaterally. No wheezes , rales, or rhonchi. GASTROINTESTINAL: Abdomen soft, TTP, nondistended. No hepato-splenomegaly, or palpable masses. No guarding. MUSCULOSKELETAL: Extremities without clubbing, cyanosis, or edema. No joint tenderness, effusion, or edema noted. No calf tenderness. Negative Homans sign bilaterally. NEUROLOGICAL: Awake and alert. Cranial nerves II through XII intact. Motor and sensory grossly within normal limits. Five out of 5 muscle strength in all muscle groups. Normal speech. Laboratory Laboratory Tests Test 01/05/18 13:38 01/05/18 14:00 01/05/18 16:30 White Blood Count 5.7 Red Blood Count 4.92 Hemoglobin 13.4 Hematocrit 39.7 Mean Corpuscular Volume 80.8 Mean Corpuscular Hemoglobin 27.2 Mean Corpuscular Hemoglobin Concent 33.7 Red Cell Distribution Width 15.0 Platelet Count 270 Mean Platelet Volume 8.4 Neutrophils (%) (Auto) 73.8 Lymphocytes (%) (Auto) 20.1 Monocytes (%) (Auto) 4.9 Eosinophils (%) (Auto) 0.6 Basophils (%) (Auto) 0.6 Neutrophils # (Auto) 4.2 Lymphocytes # (Auto) 1.1 Monocytes # (Auto) 0.3 Eosinophils # (Auto) 0.0 Basophils # (Auto) 0.0 CBC Comment DIFF FINAL Differential Comment Blood Urea Nitrogen 19 Creatinine 0.99 Random Glucose 168 Total Protein 6.7 Albumin 3.8 Calcium Level 8.7 Alkaline Phosphatase 41 Aspartate Amino Transf (AST/SGOT) 16 Alanine Aminotransferase (ALT/SGPT) 20 Total Bilirubin 0.5 Sodium Level 140 Potassium Level 3.8 Chloride Level 108 Carbon Dioxide Level 23.4 Anion Gap 9 Estimat Glomerular Filtration Rate 95 Lipase 379 Urine Color YELLOW Urine Turbidity CLEAR Urine pH 5.5 Urine Specific [place] 1.026 Urine Protein TRACE Urine Glucose (UA) NEG Urine Ketones 10 Urine Occult Blood NEG Urine Nitrite NEG Urine Bilirubin NEG Urine Urobilinogen LESS THAN 2.0 Urine Leukocyte Esterase NEG Urine RBC 2 Urine WBC 1 Urine Squamous Epithelial Cells <1 Urine Mucus FEW Urine Sperm FEW Microscopic Urinalysis Comment CULT NOT INDICATED Result Diagram: 01/05/18 1338 01/05/18 1338 Imaging Last Impressions Abdomen/Pelvis CT 01/05/18 1327 Signed Impressions: Service Date/Time: December 15:20 - CONCLUSION: 1. The prostate is enlarged. There is a 3.8 x 1.9 cm left inguinal lobe and a 1.6 x 1.2 cm retroperitoneal node. In addition, the exam demonstrates scattered areas of bony sclerosis involving the pelvis and lower thoracic spine. These findings are new compared to previous dated 01/23/15 and would be concerning for prostate cancer. 2. No acute intra-abdominal abnormality is seen. Carlos Stone MD Septic Shock Reassessment Septic Shock Reassessment Septic shock perfusion: reassessment completed Caprini VTE Risk Assessment Caprini VTE Risk Assessment Caprini VTE Risk Assessment: No/Low Risk (score <= 1) Caprini Risk Assessment Model Point Value = 1 Point Value = 2 Point Value = 3 Point Value = 5 Age 41-60 Minor surgery BMI > 25 kg/m2 Swollen legs Varicose veins or History of unexplained or recurrent spontaneous Oral contraceptives or hormone replacement Sepsis (< 1 month) Serious lung disease, including pneumonia (< 1 month) Abnormal pulmonary function Acute myocardial infarction Congestive heart failure (< 1 month) History of inflammatory bowel disease Medical patient at bed rest Age 61-74 Arthroscopic surgery Major open surgery (> 45 min) Laparoscopic surgery (> 45 min) Malignancy Confined to bed (> 72 hours) Immobilizing plaster cast Central venous access Age >= 75 History of VTE Family history of VTE Factor V Leiden Prothrombin [id number] Lupus anticoagulant Anticardiolipin antibodies Elevated serum homocysteine Heparin-induced thrombocytopenia Other congenital or acquired thrombophilia Stroke (< 1 month) Elective arthroplasty Hip, pelvis, or leg fracture Acute spinal cord injury (< 1 month) Prophylaxis Regimen Total Risk Factor Score Risk Level Prophylaxis Regimen 0-1 Low Early ambulation 2 Moderate Order ONE of the following: *Sequential Compression Device (SCD) *Heparin 5000 units SQ BID 3-4 Higher Order ONE of the following medications: *Heparin 5000 units SQ TID *Enoxaparin/Lovenox 40 mg SQ daily (WT < 150 kg, CrCl > 30 mL/min) *Enoxaparin/Lovenox 30 mg SQ daily (WT < 150 kg, CrCl > 10-29 mL/min) *Enoxaparin/Lovenox 30 mg SQ BID (WT < 150 kg, CrCl > 30 mL/min) AND/OR *Sequential Compression Device (SCD) 5 or more Highest Order ONE of the following medications: *Heparin 5000 units SQ TID (Preferred with Epidurals) *Enoxaparin/Lovenox 40 mg SQ daily (WT < 150 kg, CrCl > 30 mL/min) *Enoxaparin/Lovenox 30 mg SQ daily (WT < 150 kg, CrCl > 10-29 mL/min) *Enoxaparin/Lovenox 30 mg SQ BID (WT < 150 kg, CrCl > 30 mL/min) AND *Sequential Compression Device (SCD) Assessment and Plan Assessment and Plan Problem List: (1) Intractable nausea and vomiting ICD Code: R11.2 - Nausea with vomiting, unspecified (2) Cancer of prostate ICD Code: C61 - Malignant neoplasm of prostate Status: Acute Assessment and Plan 57 years old man with Intractable nausea and vomiting. Resolving. Conservative management with IVF hydration, antiemetic Feeling better, advance diet to regular diet. Hyperglycemia Check HgA1C and treat accordingly History of prostate cancer CT abdomen/pelvis noted and review by me with finding of mets disease Patient is aware that he needs to follow outpatient with Dr Chu, Medical Oncology for treatment Tobacco abuse Tobacco cessation counselling provided Start Nicotine patch DVT prophylaxis: B-SCDs Code Status Full code Discussed Condition With patient, nurse, family at bedside Hospital Course 57 years old man with Intractable nausea and vomiting. Resolving. Conservative management with IVF hydration, antiemetic Feeling better, advance diet to regular diet. Hyperglycemia Check HgA1C and treat accordingly History of prostate cancer CT abdomen/pelvis noted and review by me with finding of mets disease Patient is aware that he needs to follow outpatient with Dr Chu, Medical Oncology for treatment Tobacco abuse Tobacco cessation counselling provided Start Nicotine patch DVT prophylaxis: B-SCDs Code Status Full code Discussed Condition With patient, nurse, family at bedside Patient improved, Dc to SNF in stable condition to follow up as OP with PCP and consultants Pt Condition on Discharge: Stable Discharge Disposition: Discharge to SNF Discharge Time: > 30 minutes Discharge Instructions DIET: Follow Instructions for: As Tolerated, No Restrictions Activities you can perform: Regular-No Restrictions Follow up Referrals: Oncology - 1 Week PCP Follow-up - 2-3 Days New Medications: Ondansetron Odt (Ondansetron Odt) 4 Mg Tab 4 MG SL Q6HR PRN for Nausea/Vomiting, #30 TAB 0 Refills Sennosides (Senna-Tabs) 8.6 Mg Tab 8.6 MG PO BID for Constipation, #60 TAB 0 Refills Walker with Front Wheels (Walker with Front Wheels) 1 Mis Mis EA .XX DIRECTED, #1 0 Refills Continued Medications: Bicalutamide (Casodex) 50 Mg Tab 50 MG PO DAILY for Chemotherapy Management, TAB 0 Refills Hazardous agent; use appropriate precautions for handling & disposal. Oxycodone-Acetaminophen (Oxycodone-Acetaminophen) 10-325 mg Tab 1 TAB PO Q6H PRN for PAIN, #40 TAB 0 Refills (This prescription has been renewed ) Quynh Cedeno MD Jan 06, 2018 13:24
[2018-01-06 16:06] VITALS: BP 116/56; PULSE 65; RESP 18; TEMP 98.7; O2SAT 99
--- NOTE | 2018-01-06 16:26 | RADRPT ---
EXAM DATE/TIME: 01/06/2018 15:27 [facility] COMPARISON: No previous studies available for comparison. INDICATIONS : General weakness with nausea. RADIATION DOSE: 40.23 CTDIvol (mGy) MEDICAL HISTORY : Carcinoma, prostate. SURGICAL HISTORY : None. ENCOUNTER: Initial ACUITY: 1 day PAIN SCALE: 3/10 LOCATION: Bilateral cranial TECHNIQUE: Multiple contiguous axial images were obtained of the head. Using automated exposure control and adj ustment of the mA and/or kV according to patient size, radiation dose was kept as low as reasonably a chievable to obtain optimal diagnostic quality images. DICOM format image data is available electro nically for review and comparison. FINDINGS: CEREBRUM: The ventricles are normal for age. No evidence of midline shift, mass lesion, hemorrhage or acute in farction. No extra-axial fluid collections are seen. 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 The brainstem is intact. The 4th ventricle is midline. The cerebellopontine angle is unremarkable. EXTRACRANIAL: The visualized portion of the orbits is intact. Small mucous retention cyst within right maxillary si nus is noted. SKULL: The calvaria is intact. No evidence of skull fracture. CONCLUSION: 1. 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 2. No acute infarct, acute hemorrhage, midline shift or extra-axial fluid collections. 3. Small mucous retention cyst within right maxillary sinus. Angel Randall MD on January 06, 2018 at 16:22 Board Certified Radiologist. This report was verified electronically.
[2018-01-06] MEDS: ACETAMINOPHEN 325 MG TAB PO PRN ×2 (18:32→23:37)
[2018-01-06 19:58] VITALS: BP 126/62; PULSE 62; RESP 18; TEMP 98.1; O2SAT 96
--- NOTE | 2018-01-07 01:37 | MB ---
cc: Paulino Chu MD DATE OF CONSULT: REASON FOR CONSULTATION: The patient with a diagnosis of stage IV prostate adenocarcinoma, who presents to the emergency department with nausea and vomiting, abdominal discomfort. HISTORY OF PRESENT ILLNESS: This is a 57-year-old male who was diagnosed with a stage IV prostate adenocarcinoma, who was being treated with hormone blockade therapy. Unfortunately, he has been noncompliant and has not been coming to the clinic for followups. He was originally diagnosed with prostate cancer in 2014 and had a prostatectomy, which showed a [place] score of 3+8 equal to 11. The prostate size was 6 x 5.5 x 2.5 cm. He did not have any adjuvant therapy. He did develop progressive disease in summer, with a CT scan of the abdomen and pelvis which showed diffuse metastatic disease. There was bony metastatic disease as well. He had a large left groin lymph node. He underwent biopsy of the lymph node, which was consistent with prostate adenocarcinoma. CT scan in May 2015 showed periaortic lymphadenopathy, along with right iliac chain involvement extending into the superficial femoral vein. These lesions were PET avid. He also had multiple inguinal nodes that were enlarged. There was also metastatic disease involving the left inferior sternum, T12 left posterior vertebral body, and left inferior sacrum. The patient was started on hormone blockade therapy with Lupron and Casodex. He also was receiving monthly bisphosphonate therapy. He had a good response to the treatment with a decline in his PSA, which was noted to be at 1.9 on his last visit in March 2017. Clinically, he was doing well at that time. He has not been to our clinic since then. Now, he presents to the emergency department with nausea, vomiting and feeling unwell. He had a CT scan of the abdomen and pelvis on admission. I reviewed the CT scan and this shows that the prostate is enlarged. There is an inguinal node that is measuring 3.8 x 1.9 cm on the left and a 1.6 x 1.2 cm retroperitoneal node. There is bony sclerosis at the T12 vertebral body, the posterior iliac wing on the right, the ilium on the left, and the acetabular roof on the left. These areas are new compared to previous exam. The patient states that he was unable to follow up in the oncology clinic due to insurance issues. 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 His ECOG performance status is 1. REVIEW OF SYSTEMS: A comprehensive review of system was completed which is negative except as described in the HPI. PAST MEDICAL HISTORY: 1. Prostate adenocarcinoma stage IV. 2. Bony metastatic disease. PAST SURGICAL HISTORY: 1. History of prostatectomy in 2014. 2. History of prostate biopsy. FAMILY HISTORY: He does have a family history of prostate cancer and breast cancer. SOCIAL HISTORY: He denies smoking cigarettes. He rarely drinks alcohol. No illicit drug use. MEDICATIONS: 1. Nicotine patch. 2. Zofran 4 mg IV q. 6 hours p.r.n. 3. Restoril 15 mg p.o. at bedtime p.r.n. 4. Reglan 5 mg IV q. 6 hours p.r.n. ALLERGIES: NO KNOWN DRUG ALLERGIES. PHYSICAL EXAMINATION: VITAL SIGNS: Blood pressure is 116/56, pulse is in the 60s, temperature is 98.7. O2 saturations are 99% on room air. GENERAL: Ill-appearing male, in no apparent distress. HEENT: Pupils are equal, round, reactive to light. EOMI. No oral thrush. No oral lesion. NECK: Supple. No JVD. No bruits. No lymphadenopathy. CHEST: Clear to auscultation bilaterally. CARDIAC: S1, S2. Regular rate and rhythm. ABDOMEN: Soft, nontender, nondistended. Bowel sounds are present. EXTREMITIES: Without any edema, erythema or cyanosis. SKIN: Without any petechiae, no bruises. NEUROLOGIC: No focal deficits. PSYCHIATRIC: Mood and affect is appropriate. IMAGING: Reviewed in the EMR. CT scan was reviewed, which is stated above. ASSESSMENT AND PLAN: This is a 57-year-old unfortunate male who has a history of stage IV prostate adenocarcinoma, who now presents with nausea, vomiting and abdominal pain. 1. Stage IV prostate adenocarcinoma with abdominal adenopathy and metastatic disease to the bone: His PSA has gone up to the 60s. His last PSA was checked in March, and it was found to be in the 2 range. He has not been complinat with clinic visits and treatments. I had a long discussion with him. I explained to him that it is very important that he follows up in the clinic and receives treatment. He is relatively young and his prostate adenocarcinoma features are quite aggressive, based on the biopsy that was completed in 2014, and that he could have significant disease progression without any treatment. This patient will need to restart hormone blockade therapy. I also discussed potential treatment with Taxol versus Zytiga. Both of these therapies are shown to increase overall survival in patients with high-risk prostate adenocarcinoma compared to the hormone therapy alone. Docetaxel was shown to have improvement in quality of life years. The patient stated that he would be compliant with his followups. The patient also underwent a CT of the brain, which I have reviewed, and it does not show any metastatic disease. From an oncology perspective, the patient can be discharged when he is medically stable. He will need to follow up in the oncology clinic for followup. 2. Tobacco abuse: Counseling was done. Thank you for allowing me to participate in the care of this patient. MD KARIME Ledbetter/DEVANG , 12:42 AM , 01:35 AM KARLY
[2018-01-07 03:46] VITALS: BP 126/71; PULSE 72; RESP 18; TEMP 98.2; O2SAT 98
[2018-01-07] MEDS ORDERED: ONDA4TAB7 SL (08:08)
[2018-01-07 08:10] VITALS: BP 130/76; PULSE 68; RESP 18; TEMP 98; O2SAT 98
[2018-01-07] MEDS: NICOTINE 21 MG/24 HR PATCH T-DERMAL SCH (09:00)
[2018-01-07] MEDS: REMOVE OLD PATCH T-DERMAL SCH (09:00)
[2018-01-07] MEDS: SODIUM CHLORIDE 0.9% FLUSH 10 ML FLUSH IV FLUSH SCH (09:00)
[2018-01-07] MEDS: SODIUM CHLOR 0.9% 1000 ML INJ 1,000 ML IV SCH (10:00)
--- NOTE | 2018-01-07 10:07 | HHI.FF ---
Face to Face Verification Diagnosis: (1) Generalized weakness (2) Elevated PSA (3) Cancer of prostate (4) Intractable nausea and vomiting Physical Therapy Order: Evaluate and Treat Occupational Therapy Order: Evaluate and Treat Home Health Nursing Order: Medical education Signs/symptoms of disease process Medication education-adverse effect Nursing assessment with vital signs I have seen patient Shashi LuisJr on 01/07/18. My clinical findings support the need for the requested home health care services because: Ltd mobility - disease progression Deconditioned w/ increased weakness Limited ability to care for self High risk of falls I certify that my clinical findings support that this patient is homebound because: Unsteady gait/balance Tom Mandel Jan 07, 2018 10:07
[2018-01-07 10:13] LABS: HEMATOCRIT 36.4 % (39.0-51.0); HEMOGLOBIN 11.9 GM/DL (13.0-17.0); MEAN CELL VOLUME 81.8 FL (80.0-100.0); MEAN CORPUSCULAR HEMOGLOBIN 26.8 PG (27.0-34.0); MEAN CORPUSCULAR HGB CONC 32.8 % (32.0-36.0); MEAN PLATELET VOLUME 7.9 FL (7.0-11.0); PLATELET COUNT 242 TH/MM3 (150-450); RED BLOOD COUNT 4.45 MIL/MM3 (4.50-5.90); WHITE BLOOD COUNT 4.2 TH/MM3 (4.0-11.0)
[2018-01-07 10:34] LABS: CALCIUM 7.9 MG/DL (8.5-10.1); CREATININE 0.94 MG/DL (0.60-1.30)
[2018-01-07] MEDS ORDERED: OXYC1TAB36 PO (11:57)
[2018-01-07] MEDS ORDERED: SENN8.6T36 PO (11:58)
== END 2018-01-07 12:49 | disposition home or self-care (01) ==
LOC: NEPC 12:50 → NEDA 17:06 → NEPFCDU 19:27
PROVIDERS: ADMIT Hospitalist; ATTEND Hospitalist
DX: R11.2 Nausea with vomiting, unspecified (principal); C61 Malignant neoplasm of prostate; R73.9 Hyperglycemia, unspecified; E86.0 Dehydration; C79.51 Secondary malignant neoplasm of bone; R00.1 Bradycardia, unspecified; J34.1 Cyst and mucocele of nose and nasal sinus; N40.0 Benign prostatic hyperplasia without lower urinary tract symptoms; F17.200 Nicotine dependence, unspecified, uncomplicated; Z79.899 Other long term (current) drug therapy; Z91.19 Patient's noncompliance with other medical treatment and regimen
CPT/HCPCS: 70450; 74177; 80048; 80053; 81001; 83690; 84153; 85025; 85027; 85610; 85730; 93005; 96361; 96374; 96375; 96376; 97162; 97530; 99285; G0378; G8987; G8988; J2270; J2405; J2765; J7030; Q9967